=== PATIENT | female | born 1985 | race Two or more races ===

== ENCOUNTER 2022-04-22 07:28 | Outpatient (CLI) | payer OTHER | END 2022-04-22 07:41 | disposition home or self-care (01) | LOC: SONOGRAMA 07:28 → EDBD 07:28 → SONOGRAMA 07:41 | PROVIDERS: ATTEND Internal Medicine Gastroenterology | DX: R10.9 Unspecified abdominal pain (principal) ==

== ENCOUNTER 2022-04-22 08:42 | Outpatient (CLI) | payer OTHER | END 2022-04-22 08:43 | disposition home or self-care (01) | LOC: LAB 08:42 | PROVIDERS: ATTEND Internal Medicine Gastroenterology | DX: R19.7 Diarrhea, unspecified (principal) ==